=== PATIENT | female | born 1990 | race Caucasian/White ===

== ENCOUNTER 2016-11-15 16:59 | Emergency (ER) | payer OTHER ==
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
--- NOTE | 2016-11-15 18:16 | ED CLINICAL REPORT ---
Clinical Report - Physicians/Mid Levels [facility] [address] [place] [address] 11/15/2016 16:59 Patient: FARSHAD ARITA Time Seen: 1653; upon arrival, initial patient contact, initial documentation, patient care assumed. Arrived- In handcuffs. Police present. Historian- patient. RETURN VISIT: recently seen in this ED by me. Seen now for a new unrelated complaint. HISTORY OF PRESENT ILLNESS Chief Complaint: INGESTION. The substance is a foreign body - (plastic comb, and underwire from bra). This occurred just prior to arrival. Incident was witnessed (by police). Incident was not witnessed but ingestion is suspected (pt admits to it). Initially, she did not exhibit any symptoms. Symptoms described as mild. The patient had no treatment prior to arrival. ( police saw her eating comb, and then pt told them she also ate her underwire from her bra). The patient has not been choking, wheezing or dyspneic. She has not had a cough, vomiting or abdominal pain. No toxic symptoms present in the ED. Recent medical care: The patient was seen recently at this facility in the emergency department. ( txed last night). REVIEW OF SYSTEMS No chest pain, difficulty breathing or diarrhea. All systems otherwise negative, except as recorded above. PAST HISTORY See nurses notes. PROBLEMS: Normal Exam. Otitis Media. 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 Migraine Headache. Immunizations. LNMP - Last Normal Menstrual Period. --17:23 Chester Lara, R.N. Pharyngitis [RuleOut]. Sinusitis [RuleOut]. Bronchitis [RuleOut]. --17:23 Chseter Lara, RTorieN. ADDITIONAL SURGERIES: no known surgeries. Immunizations: Immunization status is up-to-date. SOCIAL HISTORY Light tobacco smoker. Occasional alcohol use. History of heavy IV drug use: cocaine, narcotics, heroin, methamphetamines, marijuana, benzodiazepines. Recently used drugs days ago. Is not under influence in ED. Not exposed to second-hand smoke at home. No problems at school. Is a local resident. FAMILY HISTORY Negative. ADDITIONAL NOTES The nursing notes have been reviewed with agreement regarding the chief complaint, HPI, ROS, PMH and patient medications and allergies. PHYSICAL EXAM Vital Signs: 11/15/2016 17:17 BP: 112/56. HR: 137. RR: 18. O2 saturation: 100%. Temp: 98.6 F. Pain level now: 10/10. Have been reviewed as abnormal and appear to be correct. Blood pressure normal. Tachycardic. Respiratory rate normal. Temperature normal. Oxygen saturation normal. Appearance: Alert alert. Oriented X3. No acute distress. Attentive. She makes eye contact. ( anxious). Head: Atraumatic. Anterior fontanel not flat. Eyes: Pupils equal, round and reactive to light. Conjunctivae and eyelids normal. Neck: Neck supple. No neck mass. CVS: Heart rate / rhythm abnormal. Tachycardia (ventricular rate = 120). Strong peripheral pulses. Heart sounds normal. Respiratory: No respiratory distress. Breath sounds normal. Abdomen: Soft and nontender. No organomegaly. Back: Normal inspection. Skin: Skin warm and dry. Normal skin color. No rash. Normal skin turgor. Extremities: Extremities not atraumatic. Normal range of motion in extremities. Extremities nontender. ( multiple abrasions on feet and hands). Neuro: Mental status is normal for the patient's age. No motor deficit or sensory deficit. LABS, X-RAYS, AND EKG X-Rays: X-rays are normal and reveal no acute disease (reviewed by dr justice). KUB negative. The X-rays were independently viewed by me. PROGRESS AND PROCEDURES Course of Care: pt ran from officer when he was getting her out of car, took off barefoot thru the [employer] bushes 18:15 11/15/16. pt calm now, but wants us to get the stuff out of her stomach. Patient counseled in person regarding the patient's stable condition, test results and diagnosis. 18:14. Differential Diagnosis: Other possible considerations: ingestion, perforated gi tract. Above considerations are based on history, physical exam and X-Ray data. Differential diagnosis was discussed with patient. Disposition: Discharged home in good and improved condition (18:16). Condition: good and stable. CLINICAL IMPRESSION Intentional ingestion (plastic comb, part of bra). INSTRUCTIONS (poop needs to be checked daily, as discussed pt is medically cleared to go with police back to [facility]). Understanding of the discharge instructions verbalized by patient. (Electronically signed by Isabel Chris A.R.N.P. 11/15/2016 22:06)
--- NOTE | 2016-11-15 18:16 | ED ORDER SUMMARY ---
..... Patient: FARSHAD ARITA OrderSheet [facility] VisitID: [id number] [address] [place] [address] 26y, F Registration Date/Time: 11/15/2016 ORDER SHEET Weight: 55.3 kg (stated) Allergies: Codeine, Sulfa Drugs, Trazodone and Nefazodone, Vicodin GENERAL ORDERS: Abdomen 1V Upright Urgent (17:03 11/15/2016 HBivens A.R.N.P.) (Ack 17:04 NHouse ER Tech1) (17:20 NHouse ER Tech1) MEDICATION ORDERS: IV FLUIDS: ORDER SHEET NOTES: [Electronically signed by Chester Lara R.N. (18:46 11/15/2016)] [Electronically signed by Isabel ChrisR.N.PTorie (22:06 11/15/2016)] [Electronically locked/signed by Chester Lara R.N. (18:46 11/15/2016)]
--- NOTE | 2016-11-15 18:16 | ED CLINICAL REPORT ---
Clinical Report - Physicians/Mid Levels [facility] [address] [place] [address] 11/15/2016 16:59 Patient: FARSHAD ARITA Time Seen: 1653; upon arrival, initial patient contact, initial documentation, patient care assumed. Arrived- In handcuffs. Police present. Historian- patient. RETURN VISIT: recently seen in this ED by me. Seen now for a new unrelated complaint. HISTORY OF PRESENT ILLNESS Chief Complaint: INGESTION. The substance is a foreign body - (plastic comb, and underwire from bra). This occurred just prior to arrival. Incident was witnessed (by police). Incident was not witnessed but ingestion is suspected (pt admits to it). Initially, she did not exhibit any symptoms. Symptoms described as mild. The patient had no treatment prior to arrival. ( police saw her eating comb, and then pt told them she also ate her underwire from her bra). The patient has not been choking, wheezing or dyspneic. She has not had a cough, vomiting or abdominal pain. No toxic symptoms present in the ED. Recent medical care: The patient was seen recently at this facility in the emergency department. ( txed last night). REVIEW OF SYSTEMS No chest pain, difficulty breathing or diarrhea. All systems otherwise negative, except as recorded above. PAST HISTORY See nurses notes. PROBLEMS: Normal Exam. Otitis Media. 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 Migraine Headache. Immunizations. LNMP - Last Normal Menstrual Period. --17:23 Chester Lara, R.N. Pharyngitis [RuleOut]. Sinusitis [RuleOut]. Bronchitis [RuleOut]. --17:23 Chester Lara, RTorieN. ADDITIONAL SURGERIES: no known surgeries. Immunizations: Immunization status is up-to-date. SOCIAL HISTORY Light tobacco smoker. Occasional alcohol use. History of heavy IV drug use: cocaine, narcotics, heroin, methamphetamines, marijuana, benzodiazepines. Recently used drugs days ago. Is not under influence in ED. Not exposed to second-hand smoke at home. No problems at school. Is a local resident. FAMILY HISTORY Negative. ADDITIONAL NOTES The nursing notes have been reviewed with agreement regarding the chief complaint, HPI, ROS, PMH and patient medications and allergies. PHYSICAL EXAM Vital Signs: 11/15/2016 17:17 BP: 112/56. HR: 137. RR: 18. O2 saturation: 100%. Temp: 98.6 F. Pain level now: 10/10. Have been reviewed as abnormal and appear to be correct. Blood pressure normal. Tachycardic. Respiratory rate normal. Temperature normal. Oxygen saturation normal. Appearance: Alert alert. Oriented X3. No acute distress. Attentive. She makes eye contact. ( anxious). Head: Atraumatic. Anterior fontanel not flat. Eyes: Pupils equal, round and reactive to light. Conjunctivae and eyelids normal. Neck: Neck supple. No neck mass. CVS: Heart rate / rhythm abnormal. Tachycardia (ventricular rate = 120). Strong peripheral pulses. Heart sounds normal. Respiratory: No respiratory distress. Breath sounds normal. Abdomen: Soft and nontender. No organomegaly. Back: Normal inspection. Skin: Skin warm and dry. Normal skin color. No rash. Normal skin turgor. Extremities: Extremities not atraumatic. Normal range of motion in extremities. Extremities nontender. ( multiple abrasions on feet and hands). Neuro: Mental status is normal for the patient's age. No motor deficit or sensory deficit. LABS, X-RAYS, AND EKG X-Rays: X-rays are normal and reveal no acute disease (reviewed by dr justice). KUB negative. The X-rays were independently viewed by me. PROGRESS AND PROCEDURES Course of Care: pt ran from officer when he was getting her out of car, took off barefoot thru the [employer] bushes 18:15 11/15/16. pt calm now, but wants us to get the stuff out of her stomach. Patient counseled in person regarding the patient's stable condition, test results and diagnosis. 18:14. Differential Diagnosis: Other possible considerations: ingestion, perforated gi tract. Above considerations are based on history, physical exam and X-Ray data. Differential diagnosis was discussed with patient. Disposition: Discharged home in good and improved condition (18:16). Condition: good and stable. CLINICAL IMPRESSION Intentional ingestion (plastic comb, part of bra). INSTRUCTIONS (poop needs to be checked daily, as discussed pt is medically cleared to go with police back to longterm). Understanding of the discharge instructions verbalized by patient. (Electronically signed by Isabel Chris A.R.N.P. 11/15/2016 22:06)
--- NOTE | 2016-11-15 18:16 | ED ORDER SUMMARY ---
..... Patient: FARSHAD ARITA OrderSheet [facility] VisitID: [id number] [address] [place] [address] 26y, F Registration Date/Time: 11/15/2016 ORDER SHEET Weight: 55.3 kg (stated) Allergies: Codeine, Sulfa Drugs, Trazodone and Nefazodone, Vicodin GENERAL ORDERS: Abdomen 1V Upright Urgent (17:03 11/15/2016 HBivens A.R.N.P.) (Ack 17:04 NHouse ER Tech1) (17:20 NHouse ER Tech1) MEDICATION ORDERS: IV FLUIDS: ORDER SHEET NOTES: [Electronically signed by Chester Lara R.N. (18:46 11/15/2016)] [Electronically signed by Isabel ChrisR.N.PTorie (22:06 11/15/2016)] [Electronically locked/signed by Chester Lara R.N. (18:46 11/15/2016)]
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
--- NOTE | 2016-11-15 19:16 | DIAGNOSTIC IMAGING REPORT ---
PROCEDURE: XR ABDOMEN 1 VIEW UPRIGHT INDICATION: Swallowed foreign body. TECHNIQUE: AP upright view. COMPARISON: None. FINDINGS: Bowel pattern is normal. Soft tissues and osseous structures are normal. No evidence of free air. There is no evidence of radiopaque foreign body. IMPRESSION: 1. Negative abdomen. No evidence of radiopaque foreign body.
--- NOTE | 2016-11-15 22:06 | ED MAR SUMMARY ---
..... Medication Administration Record [facility] [address] [place], [place] [id number] Patient: FARSHAD ARITA Visit ID: [id number] 26y, F Weight: 55.3 kg Height/Length: 64 in BMI: 20.9 ALLERGIES: Codeine, Sulfa Drugs, Trazodone and Nefazodone, Vicodin
--- NOTE | 2016-11-15 22:06 | ED MED RECONCILIATION SUMMARY ---
Patient: FARSHAD ARTIA Medication Reconciliation Report [facility] VisitID: [id number] [address] [place] [address] 26y, F Registration Date/Time: 11/15/2016 Weight: 55.3 kg Height/Length: 64 in. BMI: 20.9 ALLERGIES: Codeine, Sulfa Drugs, Trazodone and Nefazodone, Vicodin The patient's Home Medications are listed below: THE FOLLOWING MEDICATIONS NEED TO BE RECONCILED: Amytripline 100 mg HS CloNIDine HCl Oral 0.1 mg, daily Excedrin Migraine Oral Gabapentin Oral 300 mg, 3x a day The source(s) of the original Home Medication information: Not obtained. The following Medications were given to the patient in the Emergency Department: None. The following Medications were prescribed to the patient: None.
--- NOTE | 2016-11-15 22:06 | ED MED RECONCILIATION SUMMARY ---
Patient: FARSHAD ARITA Medication Reconciliation Report [facility] VisitID: [id number] [address] [place] [address] 26y, F Registration Date/Time: 11/15/2016 Weight: 55.3 kg Height/Length: 64 in. BMI: 20.9 ALLERGIES: Codeine, Sulfa Drugs, Trazodone and Nefazodone, Vicodin The patient's Home Medications are listed below: THE FOLLOWING MEDICATIONS NEED TO BE RECONCILED: Amytripline 100 mg HS CloNIDine HCl Oral 0.1 mg, daily Excedrin Migraine Oral Gabapentin Oral 300 mg, 3x a day The source(s) of the original Home Medication information: Not obtained. The following Medications were given to the patient in the Emergency Department: None. The following Medications were prescribed to the patient: None.
--- NOTE | 2016-11-15 22:06 | ED MAR SUMMARY ---
..... Medication Administration Record [facility] [address] [place], [place] [id number] Patient: FARSHAD ARITA Visit ID: [id number] 26y, F Weight: 55.3 kg Height/Length: 64 in BMI: 20.9 ALLERGIES: Codeine, Sulfa Drugs, Trazodone and Nefazodone, Vicodin
--- NOTE | 2016-11-15 22:06 | ED DISCHARGE INSTRUCTIONS ---
Patient: FARSHAD ARITA General Instructions [facility] VisitID: [id number] [place] [address] 26y, F Registration Date/Time: 11/15/2016 Intentional ingestion (plastic comb, part of bra). INSTRUCTIONS (poop needs to be checked daily, as discussed pt is medically cleared to go with police back to [facility]). Understanding of the discharge instructions verbalized by patient. ADDITIONAL INFORMATION Overdose, Intentional (Adult: Psych Evaluation) You have been evaluated and treated for taking a drug or chemical product with the intent to harm yourself. There is no sign of a toxic effect at this time. It is not likely that any new symptoms will appear. As a safeguard, watch for new symptoms during the next 24 hours (see below). The exact symptom will depend on the type of drug or chemical taken. An intentional overdose is likely to be a sign that you are depressed, or that you are very angry with yourself or someone else. In order to reduce the risk of harming yourself, we will arrange for you to have a psychiatric evaluation. Home Care: If LIQUID CHARCOAL was given to neutralize what was swallowed, it will cause a black color to the stools for 1-2 days. Usually, a laxative (sorbitol) is given with charcoal to speed the removal of any toxins from the intestinal tract. This may cause diarrhea for up to 24 hours. If no laxative was given with charcoal, you may get constipated. If this occurs, you may take an [id number] laxative such as Dulcolax pills or suppository. Follow Up with your doctor if all symptoms do not resolve within 24 hours or if constipation is not relieved by one or two doses of laxatives. If you are being discharged for immediate evaluation at a psychiatric hospital or clinic on a voluntary basis, you must go directly there with a responsible adult. If you have been placed on a legal 72 hour psychiatric hold, a ride to a psychiatric facility will be arranged for you. Get Prompt Medical Attention if any of the following occur: Excess drowsiness or inability to be awakened Rapid heart beat, you feel shaky, or you have a seizure Fast breathing (over 25 breaths/minute) or slow breathing (less than 8 breaths/minute) Feeling shortness of breath Fever of 100.4F (38C) or higher, or as directed by your healthcare provider Vomiting or diarrhea for more than 24 hours Blood in stools or vomit (black or red color) Chest or abdominal pain Dizziness, weakness or fainting Thoughts of harming yourself again You have been given the following additional information: Overdose, Intentional (Adult) (Electronically signed by Isabel Chris A.R.N.P. 11/15/2016 22:06)
--- NOTE | 2016-11-15 22:06 | ED DISCHARGE INSTRUCTIONS ---
Patient: FARSHAD ARITA General Instructions [facility] VisitID: [id number] [place] [address] 26y, F Registration Date/Time: 11/15/2016 Intentional ingestion (plastic comb, part of bra). INSTRUCTIONS (poop needs to be checked daily, as discussed pt is medically cleared to go with police back to [facility]). Understanding of the discharge instructions verbalized by patient. ADDITIONAL INFORMATION Overdose, Intentional (Adult: Psych Evaluation) You have been evaluated and treated for taking a drug or chemical product with the intent to harm yourself. There is no sign of a toxic effect at this time. It is not likely that any new symptoms will appear. As a safeguard, watch for new symptoms during the next 24 hours (see below). The exact symptom will depend on the type of drug or chemical taken. An intentional overdose is likely to be a sign that you are depressed, or that you are very angry with yourself or someone else. In order to reduce the risk of harming yourself, we will arrange for you to have a psychiatric evaluation. Home Care: If LIQUID CHARCOAL was given to neutralize what was swallowed, it will cause a black color to the stools for 1-2 days. Usually, a laxative (sorbitol) is given with charcoal to speed the removal of any toxins from the intestinal tract. This may cause diarrhea for up to 24 hours. If no laxative was given with charcoal, you may get constipated. If this occurs, you may take an [id number]-ekd-gwpudgl laxative such as Dulcolax pills or suppository. Follow Up with your doctor if all symptoms do not resolve within 24 hours or if constipation is not relieved by one or two doses of laxatives. If you are being discharged for immediate evaluation at a psychiatric hospital or clinic on a voluntary basis, you must go directly there with a responsible adult. If you have been placed on a legal 72 hour psychiatric hold, a ride to a psychiatric facility will be arranged for you. Get Prompt Medical Attention if any of the following occur: Excess drowsiness or inability to be awakened Rapid heart beat, you feel shaky, or you have a seizure Fast breathing (over 25 breaths/minute) or slow breathing (less than 8 breaths/minute) Feeling shortness of breath Fever of 100.4F (38C) or higher, or as directed by your healthcare provider Vomiting or diarrhea for more than 24 hours Blood in stools or vomit (black or red color) Chest or abdominal pain Dizziness, weakness or fainting Thoughts of harming yourself again You have been given the following additional information: Overdose, Intentional (Adult) (Electronically signed by Isabel Chris A.R.N.P. 11/15/2016 22:06)
== END 2016-11-15 18:46 | disposition home or self-care (01) ==
LOC: ED SRH 16:59
DX: T18.9XXA Foreign body of alimentary tract, part unspecified, initial encounter (principal); X83.8XXA Intentional self-harm by other specified means, initial encounter; Y92.9 Unspecified place or not applicable; Y99.9 Unspecified external cause status; F17.200 Nicotine dependence, unspecified, uncomplicated